=== PATIENT | male | born 1985 | race Caucasian/White ===

== ENCOUNTER 2017-09-04 17:09 | Emergency (ER) | payer MEDICAID ==
[~2017-09-04] VITALS: Ht 193 cm; Wt 75.1 kg
[2017-09-04 17:11] VITALS: BP 128/89
[2017-09-04] MEDS ORDERED: BUPIVACAINE/PF 0.5% ONE (17:21)
[2017-09-04] MEDS ORDERED: BUPIVACAINE/PF-EPI 0.25% 1:200K SQ ONE (17:30)
== END 2017-09-04 17:59 | disposition home or self-care (01) ==
LOC: ED 17:40
DX: K08.89 Other specified disorders of teeth and supporting structures (principal); Z88.2 Allergy status to sulfonamides
CPT/HCPCS: 64400; 99284

== ENCOUNTER 2018-10-29 22:01 | Emergency (ER) | payer MEDICAID, OTHER ==
[~2018-10-29] VITALS: Ht 193 cm; Wt 76.5 kg
[2018-10-29 22:04] VITALS: BP 135/86
--- NOTE | 2018-10-29 22:22 | NUR ---
PTS PARTNER HAS HX OF SYPHILIIS, PT REPORTS GF HAD OUTBREAK AND HAS RASH IN GENITAL AREA. HE HAS RASH AND LESIONS. PT WANTS TO BE TESTED AND TREATED. PTS VSS. PT REPORTS FREUQENT IV DRUG USE. PT IN ROOM AWAITING FURTHER ORDERS.
[2018-10-29] MEDS ORDERED: BICILLIN-LA 2,400,000 UNITS/4 ML IM ONE (22:30)
[2018-10-29] MEDS ORDERED: metroNIDAZOLE 500 MG TABLET ONE (23:48)
--- NOTE | 2018-10-29 23:54 | NUR ---
PT MEDICATED PER EMAR. Patient/Caregiver given discharge instructions and they have confirmed that they understand the instructions. Patient ambulatory with steady gait. PT GIVEN EDUCATION ON SAFE SEX AND COMMUNITY RESOURCES.
[2018-10-30] MEDS ORDERED: metroNIDAZOLE 500 MG TABLET PO ONE
== END 2018-10-29 23:57 | disposition home or self-care (01) ==
LOC: ED 23:40
DX: A53.9 Syphilis, unspecified (principal); A59.9 Trichomoniasis, unspecified; F15.10 Other stimulant abuse, uncomplicated; F11.10 Opioid abuse, uncomplicated; F17.210 Nicotine dependence, cigarettes, uncomplicated
CPT/HCPCS: 36415; 86592; 87491; 87591; 96372; 99283; J0561